=== PATIENT | male | born 1945 | race African-American/Black ===

== ENCOUNTER → 2018-04-22 | Outpatient (CLI) | payer MEDICARE ==
[~2018-04-22] MED LIST: REGADENOSON 0.4 MG/5 ML SYR IV ONE
--- NOTE | 2018-04-23 16:10 | Myoview Stress Test ---
DATE OF STUDY: 04/22/2018 09:35:00 Stress Test - Treadmill ONLY STUDY PERFORMED: Lexiscan stress test. INDICATION: Chest pain. DESCRIPTION OF PROCEDURE: After informed consent, the patient was brought to the stress lab. He was given 11 mCi of technetium-99m Myoview and myocardial perfusion SPECT images were obtained in the horizontal long axis and short axis and vertical long axis. Subsequently, the patient was given 0.4 mg Lexiscan over 10 seconds. The patient was given 30 mCi of technetium-99m Myoview and myocardial perfusion SPECT images were obtained in the horizontal long axis and short axis and vertical long axis. Gated images were also obtained. The patient tolerated the procedure without any complications. REPORT: Baseline EKG shows sinus rhythm at 94 beats per minute, leftward axis, normal intervals, no acute ST-T changes. Parameters: 1. Resting heart rate is 82 beats per minute. 2. Maximum heart rate is 100 beats per minute. 3. Resting blood pressure 128/66 mmHg. 4. Maximum blood pressure 131/67 mmHg. Reason for termination, end point obtained. INTERPRETATION: 1. Negative chest pain. 2. Negative for arrhythmias. 3. Blood pressure response consistent with Lexiscan. 4. No significant ST-T changes seen during Lexiscan infusion compared to baseline. 5. Analysis SPECT images reveals patchy radioisotope uptake in the inferior wall without any significant fixed or reversible perfusion defects. CONCLUSION: 1. No evidence of significant ischemia or infarction on the study. 2. No significant wall motion abnormalities noted. 3. Overall ejection fraction is 52%. MD EVERARDO Garcia/MODL /[id number]
== END ==
LOC: NM 09:14
DX: I10 Essential (primary) hypertension (principal); R94.31 Abnormal electrocardiogram [ECG] [EKG]; R60.9 Edema, unspecified
CPT/HCPCS: 78452; 93017; 93306; A9502; J2785